=== PATIENT | male | born 1940 | race Caucasian/White ===

== ENCOUNTER 2017-05-29 13:00 | Emergency (ER) | payer OTHER ==
[2017-05-29 13:38] VITALS: BMI 23.5
[2017-05-29 13:41] VITALS: BP 163/62; PULSE 78; RESP 18; TEMP 98; O2SAT 99
--- NOTE | 2017-05-29 14:40 | C.PDOC ---
History Of Present Illness 77 yo male was sent to Ed by PMD for imaging or Right shoulder. pt reports, " strain my Right arm 2 weeks ago, pushed heavy box above my head". Pt sts, pain is improving with time and treatment offered by PMD. Describes pain as localized over Right shoulder, worse with Right arm lifting. Otherwise, pt denies known recent direct trauma or injury, fever, chills, headache, dizziness , neck pain, CP, SOB, dyspnea, diaphoresis, palpitation, denies weakness, sensory or vascular deficits to Right arm. Ambulate to ED, not in any apparent distress. Time Seen by Provider: 05/29/17 13:42 Chief Complaint (Nursing): Upper Extremity Problem/Injury History Per: Patient Onset/Duration Of Symptoms: Intermittent Episodes Current Symptoms Are (Timing): Better Past Medical History Reviewed: Historical Data, Nursing Documentation, Vital Signs Vital Signs: Last Vital Signs Temp 98 F 05/29/17 13:38 Pulse 78 05/29/17 13:38 Resp 18 05/29/17 13:38 BP 163/62 H 05/29/17 13:38 Pulse Ox 99 05/29/17 14:40 - Medical History PMH: HTN Family History: States: No Known Family Hx - Social History Hx Alcohol Use: No Hx Substance Use: No - Immunization History Hx Tetanus Toxoid Vaccination: No Hx Influenza Vaccination: No Hx Pneumococcal Vaccination: No Review Of Systems Except As Marked, All Systems Reviewed And Found Negative. Constitutional: Negative for: Fever, Chills ENT: Negative for: Throat Pain Cardiovascular: Negative for: Chest Pain, Palpitations, Edema, Light Headedness Respiratory: Negative for: Cough, Shortness of Breath, Wheezing Gastrointestinal: Negative for: Nausea, Vomiting, Abdominal Pain Musculoskeletal: Positive for: Shoulder Pain. Negative for: Neck Pain, Back Pain Skin: Negative for: Rash Neurological: Negative for: Weakness, Numbness, Altered Mental Status, Headache , Dizziness Physical Exam - Physical Exam Appears: Well, Non-toxic, No Acute Distress Skin: Normal Color, Warm, No Rash, No Ecchymosis Head: Normacephalic Eye(s): bilateral: PERRL Chest: Symmetrical, No Deformity, No Tenderness Cardiovascular: Rhythm Regular, No Murmur, No JVD Respiratory: No Decreased Breath Sounds, No Accessory Muscle Use, No Stridor, No Wheezing Extremity: Normal ROM (RUE w/o difficulty), No Tenderness (Right shoulder), No Deformity, No Swelling Neurological/Psych: Oriented x3, Normal Speech, Normal Motor, Normal Sensation, Normal Reflexes ED Course And Treatment O2 Sat by Pulse Oximetry: 99 Pulse Ox Interpretation: Normal - Other Rad rIGHT SHOULDER X-Ray: Interpreted by Me, Viewed By Me Interpretation: (-) acute fx or dislocation Progress Note: On re-eval, pt is afebrile, hemodynamicaly stable. Non-toxic. RUE: FAROM, no neurovsacular deficits, no defomrity, no sckin changes. Imaging review (-) acute findings. Pt avdised. ref. to f/u with Ortho in 2 -3 days for re-eavl. Disposition Counseled Patient/Family Regarding: Studies Performed, Diagnosis, Need For Followup - Disposition Referrals: Mine Scott [Staff Provider] - Disposition: HOME/ ROUTINE Disposition Time: 14:15 Condition: STABLE Additional Instructions: FOLLOW UP WITH PMD, ORTHOPEDIST IN 2-3 DAYS FOR RE-EVALUATION. RETURN IF ANY NEW CHANGES. Instructions: Rotator Cuff Injury (ED), Shoulder Pain (ED) Forms: [employer] (Urdu) - Clinical Impression Clinical Impression: Shoulder tendonitis
--- NOTE | 2017-05-29 15:41 | RAD ---
PROCEDURE: Radiographs of the Right Shoulder HISTORY: pain COMPARISON: No prior. FINDINGS: BONES: . No fracture. JOINTS: Glenohumeral and acromioclavicular mild arthrosis SOFT TISSUES: Normal. OTHER FINDINGS: None. IMPRESSION: Mild arthrosis. No fracture or lytic lesion. No dislocation.
== END 2017-05-29 14:45 | disposition home or self-care (01) ==
LOC: C.ER 13:00
DX: M75.91 Shoulder lesion, unspecified, right shoulder (principal)